=== PATIENT | female | born 1950 | race Caucasian/White ===

== ENCOUNTER 2017-08-29 09:24 | Inpatient (IN) | payer MEDICARE, OTHER ==
[2017-08-18 09:35] LABS: ABSOLUTE EOSINOPHILS 0.1 thou/uL (0.0-0.7); ABSOLUTE LYMPHOCYTES 1.8 thou/uL (0.8-5.3); ABSOLUTE MONOCYTES 0.5 thou/uL (0.0-1.2); BASOPHILS 0.8 %; EOSINOPHILS 2.1 %; HEMATOCRIT 41.4 % (37.0-47.0); HEMOGLOBIN 13.8 gm/dL (12.0-15.0); LYMPHOCYTES 33.2 %; MCHC 33.4 g/dL (28.0-37.0); MCV 92.9 fL (80.0-100.0); MONOCYTES 8.7 %; MPV 8.2 fl. (7.2-11.1); NUCLEATED RBCS 0 /100WBC; PLATELET COUNT* 260 thou/uL (150-400); POLYS 55.2 %; RBC 4.46 mil/uL (4.20-5.00); RDW-CV 13.6 % (10.5-14.5); WBC 5.5 thou/uL (4.0-11.0)
[2017-08-18 09:42] LABS: APTT 28.5 Seconds (25.0-31.3); PROTIME 9.7 Seconds (9.20-11.50)
[2017-08-18 09:47] LABS: ALBUMIN 3.7 g/dL (3.4-5.0); CALCIUM 8.8 mg/dL (8.5-10.1); CREATININE 0.7 mg/dL (0.6-1.3); POTASSIUM 3.8 mmol/L (3.5-5.1); TOTAL BILIRUBIN 0.5 mg/dL (<0.1-1.0); TOTAL PROTEIN 7.2 g/dL (6.4-8.2)
[2017-08-18 10:31] LABS: ESR (SEDRATE) 3 mm/hr (0-30)
--- NOTE | 2017-08-18 11:29 | EKG ---
[place] [address] ELECTROCARDIOGRAM REPORT Name: BENSON ELIZONDO Room: PRE IN [facility].#: [id number] Admission: Attend Phys: Patrizia Johnson Discharge: Date of : 50 Report #: [id number] THIS REPORT FOR: //name// [facility] Test Date: 2017-08-18 Test Time: 08:54:16 Pat Name: BENSON ELIZONDO Department: Room: Gender: F Commissioned Police Officer: : 1950 Requested By: Daniel Munoz Order Number: [id number] Reading MD: Uzair Chen Measurements Intervals [place] Rate: 56 P: 124 IN: 159 QRS: 67 QRSD: 97 T: 57 QT: 443 QTc: 428 Interpretive Statements Sinus rhythm Compared to ECG 03/07/2017 08:25:59 Sinus bradycardia no longer present Electronically Signed On 08-18-2017 11:29:35 PRODUCTION LEADER by Uzair Chen [email or web address] <ELECTRONICALLY SIGNED> By: Uzair Chen MD, [facility] 08/18/17 1129 [phone] Uzair Chen MD, [facility] /EPI
[2017-08-18 18:11] LABS: GLYCOHEMOGLOBIN (HGB A1C) 5.2 % (4.8-5.6)
[~2017-08-29] VITALS: Ht 167.6 cm; Wt 72.6 kg
[~2017-08-29 09:24] MED LIST: ALEVE220 MG PO; ASPIRIN325 PO; CELEXA20 MG PO; CYCLOBENZAPRINE5 MG PO; ESTRADIOL 1 MG T1 M1 PO; LIPITOR 20 MG T20 M1 PO; MOBIC15 MG PO; NORCO 5-325 TA1 EACH PO; OXYBUTYNIN 5 MG5 M2 PO; OXYCODONE HCL 55 MG PO; PRILOSEC 20 MG20 MG PO; STOOL SOFTENER250 MG PO
[2017-08-29 12:07] VITALS: BP 148/75
--- NOTE | 2017-08-29 15:40 | NUR ---
ASSUMED CARE OF PATIENT AFTER TRANSFER FROM PACU AT 1540. ALERT AND ORIENTED X4. ASSESSMENT COMPLETED AND CHARTED. VSS ON ROOM AIR. PATIENT ORIENTED TO ROOM. NO COMPLAINTS OF NAUSEA. PAIN IS MINIMAL BUT STARTED ON PAIN MEDICATION TO STAY AHEAD OF PAIN BLOCK WEARS OFF. FLUIDS STARTED INFUSING ORDERED. CALL LIGHT IS WITHIN REACH. NURSING WILL CONTINUE TO MONITOR.
[2017-08-29 16:00] VITALS: BP 128/64
--- NOTE | 2017-08-29 17:30 | NUR ---
PATIENT REMAINS ALERT AND ORIENTED. VSS ON 2 LITERS 02. PATIENT STILL HAS NO COMPLAINTS OF NAUSEA. PAIN HAS BEEN MANAGED WITH MEDICATION. POLAR CARE IS IN PLACE. FLUIDS CONTINUE INFUSING ORDERED. HOURLY ROUNDS HAVE BEEN MAINTAINED. CALL LIGHT IS WITHIN REACH, NURSING WILL CONTINUE TO MONITOR.
[2017-08-29 21:00] VITALS: BP 119/73
[2017-08-30] VITALS (7 sets, daily range): BP systolic 110–149; BP diastolic 55–91
[2017-08-30 04:47] LABS: HEMATOCRIT 33.3 % (37.0-47.0); HEMOGLOBIN 11.3 gm/dL (12.0-15.0)
--- NOTE | 2017-08-30 05:25 | NUR ---
PATIENT HAS SLEPT OFF AND ON DURING THE NIGHT. AT BESIDE. PAIN CONTROLLED WITH ORAL PAIN MEDICATION AND CHARTED. VSS ON 2L 02 VIA NASAL CANNULA. DRESSING TO RIGHT SHOULDER C/D/I, POLAR CARE AND SLING IN PLACE. IV IN LEFT WRIST-NS @ 80ML/HR. IV ABT GIVEN WITHOUT ANY ADVERSE SIDE EFFECTS NOTED. NO C/O NAUSEA. PATIENT INSTRUCTED TO USE CALL LIGHT WHEN NEEDING ASSISTANCE. FALL PRECAUTIONS IN PLACE. PATIENT IS UP WITH ASSIST X 1 AND STEADY. HOURLY ROUNDS MADE. WILL CONTINUE WITH PLAN OF CARE AND NURSING TO MONITOR.
--- NOTE | 2017-08-30 14:29 | NUR ---
VISITED WITH PT.AND ,ALISA. THEY HELP EACHOTHER. HE HAS A 'BROKEN BACK' FROM A FALL IN JUN. HAS A BRACE ON. THEY LIVE IN A MOBILE HOME. NORMALLY SHE IS INDEPENDENT. SHE HOPES TO GO HOME TOMORROW. A FRIEND IS WATCHING THEIR DOG FOR THEM ADN SISTER WILL DRIVE HER TO OUTPT.P.T. SHE HAS HIRED A LADY TO CLEAN HER HOME. HER PHARMACY IS [facility] IN [place]. ALISA IS HER DPOA AND COPY ON CHART. CM WILL FOLLOW.
[2017-08-31 04:08] VITALS: BP 115/56
--- NOTE | 2017-08-31 07:01 | NUR ---
PATIENT HAS SLEPT OFF AND ON DURING THE NIGHT BUT HAS BEEN RESLTLESS AT TIMES. VSS ON RA. PAIN WELL CONTROLLED. MEDICATIONS GIVEN AND CHARTED. DRESSING TO RIGHT SHOULDER IS C/D/I, AND SLING IN PLACE. PATIENT IS UP WITH ASSIST X 1 TO THE BATHROOM. AT BEDSIDE. PATIENT INSRUCTED TO USE CALL LIGHT WHEN NEEDING ASSISTANCE. HOURLY ROUNDS MADE. WILL CONTINUE WITH PLAN OF CARE AND NURSING TO MONITOR.
[2017-08-31 08:03] VITALS: BP 108/55
[2017-08-31] MEDS ORDERED: NORCO 5-325 TA1 EACH PO (09:48)
[2017-08-31] MEDS ORDERED: OXYCODONE HCL 55 MG PO (09:49)
[2017-08-31 09:50] VITALS: BP 120/55
[2017-08-31] MEDS ORDERED: ELIQUIS2.5 MG PO (09:50)
--- NOTE | 2017-08-31 10:46 | NUR ---
ASSUMED CARE OF PATIENT AFTER REPORT THIS MORNING. PATIENT AWAKE, ALERT, AND ORIENTED APPROPRIATELY. PHYSICAL ASSESSMENT COMPLETED AND CHARTED. COMPLAINED OF PAIN. GIVEN PRN AND SCHEDULED MEDICATIONS, SEE EMAR FOR DOCUMENTATION. VITAL SIGNS STABLE. OXYGEN SATURATION WITHIN NORMAL LIMITS ON ROOM AIR. PATIENT TRANSFERS AND AMBULATES INDEPENDENTLY IN ROOM WITHOUT DIFFICULTY. SLING IN PLACE. USES CALL LIGHT APPROPRIATELY. RECEIVED ORDERS TO DISCHARGE PATIENT HOME. DISCHARGE PAPERWORK COMLETED AND SIGNED BY ALL APPROPRIATE PARTIES, ON PATIENT'S CHART. IV DISCONTINUED. NURSING WILL CONTINUE TO MONITOR UNTIL DISCHARGE.
--- NOTE | 2017-08-31 10:56 | NUR ---
CALLED IN BALWINDER PRESCPRIPTION WRITTEN TO [facility] IN [place]. COPAY IS $195. PT.SAID IT WAS FINE. QUESTIONED AMOUNT. SHE SAID I NEED IT TO PREVENT BLOOD CLOTS AND IS AGREEABLE TO OBTAINING. SHE SAID SHE WILL USE [facility] . CM WILL FAX ORDERS TO THEM
--- NOTE | 2017-08-31 11:08 | NUR ---
PATIENT DISCHARGED AT 1104. BELONGINGS AND DISCHARGE PAPERWORK, PRESCRIPTIONS IN TOW.
--- NOTE | 2017-08-31 16:34 | S ---
[address] [address] SURGICAL PATH RPT PROCEDURE Name: LUCIA LEE I Room: [address] IN ..#: [id number] Admission: 08/29/17 Date of : 50 Discharge: 08/31/17 Report #: [id number] Path Case #: [id number] PATHOLOGY REPORT COLLECTION DATE: 08/29/2017 RECEIVED DATE: 08/30/2017 SUBMITTING PHYS: Dr. Daniel Munoz OTHER PHYS: Dr. Hugo Barr SPECIMEN(S) RECEIVED: A.Right shoulder-humeral head * * * * * * * * * * * * FINAL DIAGNOSIS: Right humeral head, total shoulder replacement: - Benign humeral head with degenerative changes. (MANOHAR:mgr; 08/31/2017) PATHOLOGIST: Titus Ordonez M.D. REPORT ELECTRONICALLY SIGNED BY: Titus Ordonez M.D. DATE/TIME: 08/31/2017 16:33 * * * * * * * * * * * * GROSS PATHOLOGY: Received in formalin labeled "Lucia Lee, right humeral head," is a humeral head measuring 4.8 x 4.6 x 2.4 cm in greatest dimensions. The articular surface is oro and smooth with no grossly identifiable eburnation. Sectioning the bone reveals yellow-oro cut surfaces. Packing Line Worker tissue is submitted in cassette A1, following decalcification. (SDY; 08/30/2017) CLINICAL HISTORY: DJD right shoulder INITIAL CPT CODE(S): A; 36638, 64982 Professional services performed by [facility] at [facility] [address] [place] [address] Technical services performed by [facility] at [address] [place] [address], [facility] [address] [address]. [place] [address] SURGICAL PATH RPT PROCEDURE Name: LUCIA LEE I Room: [address]#: [id number] Admission: 08/29/17 Date of : 50 Discharge: 08/31/17 Report #: [id number] Path Case #: [id number] [facility] [address] [address] PHONE: [phone] DIRECTOR: Vickey Prather M.D. * * * END OF REPORT * * *
--- NOTE | 2017-11-02 20:20 | OP ---
[address] [address] OPERATIVE REPORT Name: BENSON ELIZONDO I Room: [address] IN ..#: [id number] Admission: 08/29/17 Attend Phys: Patrizia Johnson Discharge: 08/31/17 Date of : 50 Report #: [id number] THIS REPORT FOR: //name// CC: Daniel Parra DATE OF SERVICE: 08/29/2017 PREOPERATIVE DIAGNOSIS: Rotator cuff arthropathy, right shoulder. POSTOPERATIVE DIAGNOSIS: Rotator cuff arthropathy, right shoulder. PROCEDURE: Right reverse total shoulder arthroplasty. SURGEON: Daniel Munoz DO MONEY LAUNDERING INVESTIGATOR: ALESSIO Velasquez DO ESTIMATED BLOOD LOSS: 100 mL. ANTIBIOTICS: Ancef 1 gram IV preoperatively. ORTHOPEDIC IMPLANTS: Tornier reverse shoulder arthroplasty system. 1. Size 3 humeral stem. 2. A 30 mm length glenoid baseplate. 3. Size 0 humeral tray with 6 mm polyethylene spacer. ANESTHESIA: General with interscalene block. COMPLICATIONS: None. SPECIMEN REMOVED: None. CONDITION OF PATIENT: Stable to PACU. INDICATIONS: The patient is a pleasant 67-year-old female seen in my clinic regarding right shoulder pain she had for quite some time. She underwent previous rotator cuff repair with myself approximately 5 months ago. Unfortunately, she has developed a recurrent tear consistent with full thickness rotator cuff pathology. 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 Based on recurrent tear and the condition of her shoulder, I have recommended right reverse total shoulder arthroplasty. I discussed procedure, risks, benefits, complications, indications in detail with her. Risks discussed include but not limited to infection, neurovascular injury, continued or worsened pain, continued or worsening mobility, DVT, PE, anesthesia complications, fracture, [address] [address] OPERATIVE REPORT Name: BENSON ELIZONDO I Room: [address]#: [id number] Admission: 08/29/17 Attend Phys: Patrizia Johnson Discharge: 08/31/17 Date of : 50 Report #: [id number] hardware failure and dislocation. She has agreed to this plan and wished to proceed with surgery. DESCRIPTION OF PROCEDURE: After consent was obtained, the patient was taken to the operative suite and placed in supine position on operating table. She was given benefit of general anesthesia. She was then placed in beachchair position. All bony prominences were well padded. The right upper extremity was then sterilely prepped and draped in the usual fashion. Preop timeout was obtained to confirm the correct patient, procedure and operative site. Surgery began with standard deltopectoral incision approximately 10 cm in length. Sharp dissection was taken down to level of the deltopectoral interval. Cephalic vein was visualized, retracted laterally throughout the case. The clavipectoral fascia was encountered. This was incised in line with the incision. Retractor was placed deep and the conjoined tendon was retracted gently throughout the case. She did have findings consistent with a large full thickness rotator cuff tear. Normal appearing joint effusion was encountered. The shoulder was gradually externally rotated while the subscapularis was gently released with electrocautery and the humeral head was easily dislocated. The neck cutting guide was utilized and the neck cut was made utilizing the oscillating saw. We then prepared the humerus with canal finder and sequential broaching. This progressed up to a size 3. This had a good fit and fill of the humerus. Attention at this point was turned to the glenoid. This was fairly easily visualized. However, we did place anterior and posterior retractors and small cut soft tissue release was performed for better glenoid exposure. We placed a guide pin in the central aspect of the glenoid. Sequential reaming was then performed and central hole was drilled. This was measured to be 30 mm. The 30 mm glenoid baseplate was then screwed into place. This had extremely solid fixation and was quite stable. I went ahead and placed a superior and inferior screw of appropriate length. At this point, the glenosphere was then impacted in place and was confirmed to be locked in place with screw tightening. Attention was then returned to the humerus. Trial reduction was performed and we would like to proceed with the size 3 stem if trial was removed. Final size 3 stem was then impacted in place after thorough irrigation and again trial reduction was performed. We had a good solid fit with a 0 tray and 6 mm polyethylene spacer. This final construct was then impacted in place. The shoulder was then reduced and the shoulder was taken through range of motion. She had good range of motion with flexion, abduction, external rotation and adduction. No obvious impingement, subluxation or dislocation was noted. After final implants, the wound was thoroughly irrigated with sterile saline. Deltopectoral fascia was loosely reapproximated with #1 Vicryl, subcutaneous tissues closed with 2-0 Vicryl in inverted interrupted fashion followed by running Monocryl stitch on the skin. This was covered with Dermabond which was allowed to dry, dressing, 4 x 4s, ABD pad, and Medipore tape. She was placed in a sling postoperatively. She did tolerate the procedure well without [address] [place] [address] OPERATIVE REPORT Name: BENSON ELIZONDO I Room: [address]#: [id number] Admission: 08/29/17 Attend Phys: Patrizia Johnson Discharge: 08/31/17 Date of : 50 Report #: [id number] complications. She was taken to the recovery room in stable condition. All needle and sponge counts correct x 2 at the end of the procedure. <ELECTRONICALLY SIGNED> By: Daniel Munoz DO 11/02/172019 1719 1756Dastar Munoz DO /nt
== END 2017-08-31 11:04 | disposition home or self-care (01) | DRG 483 ==
LOC: M.PRE 09:24 → M.TBA 11:11 → M.ORTHSURG 11:11 → M.PRE 13:38 → M.ORTHSURG 15:56
PROVIDERS: Orthopaedic Surgery; ADMIT Internal Medicine
PROC: 0RRJ00Z Replacement of Right Shoulder Joint with Reverse Ball and Socket Synthetic Substitute, Open Approach (ICD-10-PCS; principal; 2017-08-29)
DX: S43.421A Sprain of right rotator cuff capsule, initial encounter (principal); K21.9 Gastro-esophageal reflux disease without esophagitis; N32.81 Overactive bladder; X58.XXXA Exposure to other specified factors, initial encounter; F41.9 Anxiety disorder, unspecified; Z90.89 Acquired absence of other organs; Z90.710 Acquired absence of both cervix and uterus; Z87.891 Personal history of nicotine dependence; Z28.21 Immunization not carried out because of patient refusal; Y93.89 Activity, other specified; Y92.89 Other specified places as the place of occurrence of the external cause; Y99.8 Other external cause status